=== PATIENT | male | born 1960 | race Caucasian/White ===

== ENCOUNTER 2017-05-05 16:27 | Emergency (ER) | payer OTHER, MEDICAID ==
[~2017-05-05] VITALS: Ht 177.8 cm; Wt 99.3 kg
[2017-05-05] MEDS ORDERED: ALBUTEROL2.5 MG/0.1 INH (16:39)
[2017-05-05 18:04] VITALS: BP 122/81
== END 2017-05-05 18:05 | disposition home or self-care (01) ==
LOC: M.ERS 16:27
DX: N44.2 Benign cyst of testis (principal); J45.909 Unspecified asthma, uncomplicated

== ENCOUNTER 2018-05-09 15:04 | Emergency (ER) | payer OTHER, MEDICAID ==
[~2018-05-09] VITALS: Ht 177.8 cm; Wt 101.2 kg
[~2018-05-09 15:04] MED LIST: ALBUTEROL2.5 MG/0.1 INH
[2018-05-09] MEDS ORDERED: MEDROLDOSEPACK PO (15:49)
[2018-05-09] MEDS ORDERED: ACETAMINOPHEN-1 EAC1 PO (15:50)
[2018-05-09] MEDS ORDERED: AUGMENTIN 875-1 EACH PO (16:30)
[2018-05-09 16:37] VITALS: BP 123/88
== END 2018-05-09 16:39 | disposition home or self-care (01) ==
LOC: M.ERS 15:04
DX: J32.9 Chronic sinusitis, unspecified (principal); M54.2 Cervicalgia; R51 Headache; J44.9 Chronic obstructive pulmonary disease, unspecified